=== PATIENT | male | born 1960 | race Two or more races ===

== ENCOUNTER 2018-07-11 16:17 | Inpatient (IN) | payer MEDICARE, OTHER ==
[~2018-07-11] VITALS: Ht 175.3 cm; Wt 70.8 kg
--- NOTE | 2018-07-11 17:00 | NUR ---
ASE MASTER MECHANIC NOTES RECEIVED REPORT FROM [facility] FROM [facility] . PATIENT CAME INTO ER FROM HOME [facility] FOR SEIZURES. 57 YR OLD WELSH SPEAKING MALE WITH HX OF SEIZURES AND CVA 2011 AND EPILEPSY. PATIENT WAS BEING DISCHARGED X2 WHEN EXPERIENCED SEIZURE IN ED. MEDS GIVEN IN ED KEPPRA 1000MG/ATIVAN X2 / DILANTIN 1000MG. NO SEIZURES AFTER LAST DOSE OF ATIVAN @1245. DILANTIN LEVEL 0. VITALS STABLE IN ED 76.4 KGS DEFICIT OF (R) ARM WEAKNESS (L) WRIST SALINE LOCK # 20 GAUGE . ETA 1800.
--- NOTE | 2018-07-11 18:30 | NUR ---
TESTING MANAGER NOTES PATIENT ARRIVED EMS NO SIGNS OR SYMPTOMS OF RESPIRATORY DISTRESS OR ACUTE PAIN. ON ROOM AIR. A/O X2 PATIENT NONVERBAL JAPANESE SPEAKING GARBLED SPEECH/APHASIC. GOWN AND BRIEF CHANGED PLACED ON TELE MONITOR SINUS RHYTHM AT THIS TIME. VITALS T 97.7 BP 129/76 HR 77 RR 17 O2 97% RA. EMS STATED FAMILY (SON ) ON HIS WAY TO HELP WITH HISTORY. WILL ENDORSE TO NOC
[2018-07-11 20:00] VITALS: BP 127/75
[2018-07-11] MEDS ORDERED: ZOLPIDEM TARTRATE 5 MG TABLET PO PRN (20:00)
[2018-07-11] MEDS ORDERED: Z GUARD REMEDY 2 OZ OINT TP PRN (20:00)
[2018-07-11] MEDS ORDERED: MAG HYDROX/AL HYDROX/SIMETH 30 ML UDC PO PRN (20:00)
[2018-07-11] MEDS ORDERED: HYDROCODONE/APAP 5/325MG 1 EACH TABLET PO PRN (20:00)
[2018-07-11] MEDS ORDERED: ONDANSETRON HCL/PF 4 MG/2 ML VIAL IVP PRN (20:00)
[2018-07-11] MEDS ORDERED: MAGNESIUM HYDROXIDE 30 ML UDC PO PRN (20:00)
[2018-07-11] MEDS ORDERED: ACETAMINOPHEN 325 MG TABLET PO PRN (20:00)
[2018-07-11] MEDS ORDERED: LORAZEPAM INJ 2 MG/ML VIAL IV PRN (20:00)
--- NOTE | 2018-07-11 20:00 | NUR ---
TELE/ADMISSION RN NOTES: RECEIVED PT. FROM PREVIOUS SHIFT. A/O X 3. SPEECH IS GARBLED DUE TO CVA IN 2011. ON TELE MONITOR W/ SR. ABLE TO UNDERSTAND UPPER SORBIAN AND NAMIBIAN. FOLLOW SIMPLE COMMANDS . W/ HL ON LW W/ IVF. SON AND BROTHER PRESENT BY BEDSIDE. DENIES ANY C/O CHEST PAIN OR SOB PRESENT. ON SEIZURE PRECAUTION. SIDE RAILS PADDED. ABLE TO USE URINAL. CALL LIGHT W/ REACH. WILL CONTINUE TO MONITOR.
[2018-07-11 20:08] VITALS: BP 129/76
[2018-07-11 20:53] LABS: ALBUMIN 3.1 g/dL (3.4-5.0); BILIRUBIN,TOTAL 0.5 mg/dL (0.2-1.0); CALCIUM, SERUM 8.2 mg/dL (8.5-10.1); CREATININE 0.9 mg/dL (0.6-1.3); MAGNESIUM 1.9 mg/dL (1.8-2.4); PHOSPHORUS 2.8 mg/dL (2.5-4.9); POTASSIUM 3.9 mmol/L (3.5-5.1); TOTAL PROTEIN, SERUM 6.4 g/dL (6.4-8.2)
[2018-07-11] MEDS: IV NS 0.9% 1,000 ML IV PRN (21:15)
[2018-07-11] MEDS: LEVETIRACETAM (500MG) 500 MG in IV NS 0.9% 100 ML IV SCH (21:15)
[2018-07-11 21:26] LABS: BASOPHILS % (AUTO) 0.2 % (0.0-2.0); EOSINOPHILS % (AUTO) 0.4 % (0.0-6.0); HEMATOCRIT 45 % (39-51); HEMOGLOBIN 14.8 g/dL (13.5-17.5); LYMPHOCYTES # (AUTO) 1.9 /CMM (0.8-4.8); LYMPHOCYTES % (AUTO) 20.5 % (20.0-44.0); MEAN CORPUSCULAR HGB CONC 33 g/dl (31.0-36.0); MEAN CORPUSCULAR VOLUME 86 fL (80-96); MONOCYTES # (AUTO) 0.7 /CMM (0.1-1.30); MONOCYTES % (AUTO) 7.3 % (2.0-12.0); NEUTROPHILS # (AUTO) 6.5 /CMM (1.8-8.9); NEUTROPHILS % (AUTO) 71.6 % (43.0-81.0); PLATELET COUNT (AUTO) 196 /CMM (150-450); RED BLOOD CELL COUNT(AUTO) 5.19 MIL/uL (4.5-6.0); WHITE BLOOD COUNT (AUTO) 9.1 K/uL (4.3-11.0)
[2018-07-12] VITALS: BP 110/69
[2018-07-12 04:00] VITALS: BP 100/56
[2018-07-12 06:26] LABS: BASOPHILS % (AUTO) 0.3 % (0.0-2.0); EOSINOPHILS % (AUTO) 1.5 % (0.0-6.0); HEMATOCRIT 42 % (39-51); LYMPHOCYTES % (AUTO) 24.7 % (20.0-44.0); MEAN CORPUSCULAR HGB CONC 33 g/dl (31.0-36.0); MEAN CORPUSCULAR VOLUME 86 fL (80-96); MONOCYTES # (AUTO) 0.7 /CMM (0.1-1.30); MONOCYTES % (AUTO) 8.9 % (2.0-12.0); NEUTROPHILS # (AUTO) 5.4 /CMM (1.8-8.9); NEUTROPHILS % (AUTO) 64.6 % (43.0-81.0); PLATELET COUNT (AUTO) 197 /CMM (150-450); RED BLOOD CELL COUNT(AUTO) 4.93 MIL/uL (4.5-6.0); WHITE BLOOD COUNT (AUTO) 8.3 K/uL (4.3-11.0)
[2018-07-12 06:35] LABS: CALCIUM, SERUM 7.9 mg/dL (8.5-10.1); CREATININE 0.9 mg/dL (0.6-1.3); POTASSIUM 3.9 mmol/L (3.5-5.1)
--- NOTE | 2018-07-12 07:47 | NUR ---
RN AM SHIFT NOTE SWALLOW EVALUATION ORDER PER MD ORDER. PATIENT HAS DIAGONOSIS SEIZURE X2 , SPEECH NOT CLEAR, HX OR STROKE, OK TO ORDER SWALLOW EVAL AT THIS TIME.
[2018-07-12 08:00] VITALS: BP 120/68
--- NOTE | 2018-07-12 08:10 | NUR ---
PSYCHODRAMATIST NOTES RECEIVED PATIENT IN BED AWAKE ALERT WITH SOME CONFUSION AND SLURRED SPEECH. TELE MONITOR SINUS RHYTHM HR 65, LFT WRIST 20 GAUGE INTACT RUNNING NS 75ML/HR ORDERED, BED IN LOW POSITION, SEIZURE PRECAUTIONS IN PLACE, WILL ASK DR TO ORDER ST FOR SWALLOW EVAL. CALL LIGHT WITHIN REACH, PLAN OF CARE DISCUSSED WITH PATIENT , WILL CONTINUE TO MONITOR. CHARGE NURSE SPOKE WITH NEUROLOGIST AND WILL SEE PATIENT.
[2018-07-12] MEDS: LEVETIRACETAM (500MG) 500 MG in IV NS 0.9% 100 ML IV SCH ×2 (08:22→21:06)
--- NOTE | 2018-07-12 09:30 | NUR ---
AUGER MACHINE OFFBEARER NOTE SPEECH THERAPY AT BEDSIDE SWALLOW EVAL DONE, OK TO CONTINUE CARDIAC DIET ORDERED.
[2018-07-12] MEDS ORDERED: DEXTROSE 50%-WATER 50 ML DISP.SYRIN IV PRN (10:30)
[2018-07-12] MEDS: IV NS 0.9% 1,000 ML IV PRN (10:50)
--- NOTE | 2018-07-12 11:09 | NUR ---
COMMERCIAL INTERIOR DESIGNER NOTE PT AT BEDSIDE , ABLE TO AMBULATE AROUND ROOM WITH ASSISTANCE
[2018-07-12 12:00] VITALS: BP 131/68
[2018-07-12] MEDS: BLOOD SUGAR DIAGNOSTIC 1 EACH STRIP VI SCH ×3 (12:34→21:17)
[2018-07-12] MEDS: INSULIN REGULAR, HUMAN 100 UNIT/ML 3 ML VIAL SQ PRN ×2 (12:35→17:04)
--- NOTE | 2018-07-12 12:37 | NUR ---
SENIOR CONTROLS ENGINEER NOTE ACCUCHECK DONE 323, 12 UNITS GIVEN. ATE 100% LUNCH
[2018-07-12] MEDS ORDERED: METF-442 PO (13:14)
[2018-07-12] MEDS ORDERED: TAMS0.4C34 PO (13:14)
[2018-07-12] MEDS ORDERED: LEVE100023 PO (13:14)
[2018-07-12] MEDS ORDERED: ZONI100C6 PO (13:14)
[2018-07-12] MEDS ORDERED: LISI-603 PO (13:14)
[2018-07-12] MEDS ORDERED: SERT50TA12 PO (13:14)
[2018-07-12] MEDS ORDERED: CLOP75TA15 PO (13:14)
[2018-07-12] MEDS ORDERED: RANI150C4 PO (13:14)
[2018-07-12] MEDS ORDERED: METO100T14 PO (13:14)
[2018-07-12] MEDS ORDERED: INSU100I26 SQ (13:14)
[2018-07-12 13:59] LABS: APPEARANCE,URINE CLEAR (CLEAR); BILIRUBIN,URINE NEGATIVE (NEGATIVE); BLOOD, URINE NEGATIVE Ery/uL (NEGATIVE); COLOR,URINE YELLOW (YELLOW); KETONES,URINE NEGATIVE (NEGATIVE); LEUKOCYTE ESTERASE ,URINE NEGATIVE (NEGATIVE); NITRITE, URINE NEGATIVE (NEGATIVE); PH,URINE 7.5 (5.0-8.0); PROTEIN,URINE NEGATIVE (NEGATIVE); UGLUCOSE 3+ mg/dL (NEGATIVE); UROBILINOGEN,URINE 0.2 EU/dL (0.2)
[2018-07-12 14:28] LABS: BACTERIA,URINE Rare /HPF (None Seen); RBC,URINE 0-2 /HPF (0-2); SQUAMOUS EPITHELIAL CELL,UR Rare /HPF (None Seen); WBC,URINE NONE SEEN /HPF (0-3)
--- NOTE | 2018-07-12 15:49 | NUR ---
ROW BOSS HOEING NOTE ROUNDS MADE, RESTING COMFORTABLE, ASSISTED TO URINAL, URINATED WELL, MONITOR PATIENT
[2018-07-12 16:00] VITALS: BP 113/69
[2018-07-12] MEDS: METFORMIN 850 MG TABLET PO SCH (16:31)
--- NOTE | 2018-07-12 18:25 | NUR ---
EQUINE VET NOTE PATIENT RESTING COMFORTABLE, SEIZURE PRECAUTIONS IN PLACE, BED IN LOW POSITION, BED ALARM ON, RIGHT FOREARM IV 20 GAUGE PATENT AND INTACT, ALERT TO NAME SPEECH GARBLED, STROKE AND RIGHT UPPER ARM WEAKNESS, NORMAL SINUS RHYTHM, URINAL AT BEDSIDE 900 CC THIS SHIFT, PT EVAL DONE WALK WITH ASSIST, SPEECH EVAL DONE DIABETIC DIET, RT LOWER LEG SCAB WOUND CONSULT DONE, FALL RISK BED ALARM ON. IV FLUIDS RUNNING 75ML/HR, ACCUCHECK DONE ACHS 1830 WAS 151. URINE RESULT 3+, SPEECH EVAL DONE, MRSA PENDING. WILL CONTINUE TO MONITOR PATIENT FOR SEIZURE AND NON COMPLIANCE WITH MEDS.
[2018-07-12 20:00] VITALS: BP 128/69
[2018-07-12] MEDS: *INSULIN REGULAR(HUMULIN R)HUM 100 UNIT/ML VIAL SQ PRN (21:25)
--- NOTE | 2018-07-12 23:50 | NUR ---
RN GAVE REPORT AND PATIENT TO HENRIQUE PALACIOS
--- NOTE | 2018-07-12 23:55 | NUR ---
RN NOTES RECEIVED PT. FROM HENRIQUE MARROQUIN, Shay/MONSERRAT 2 AFGHAN SPEAKING, SR ON TELE MONITOR HR-63, NO PAIN NOTED, NO SOB, CALL LIGHT WITHIN REACH, [id number], CONTINUE TO MONITOR
[2018-07-13 00:39] VITALS: BP 132/68
[2018-07-13] MEDS: IV NS 0.9% 1,000 ML IV PRN (01:40)
[2018-07-13 04:00] VITALS: BP 140/81
[2018-07-13 06:41] LABS: CALCIUM, SERUM 7.9 mg/dL (8.5-10.1); CREATININE 0.8 mg/dL (0.6-1.3); MAGNESIUM 1.7 mg/dL (1.8-2.4); PHOSPHORUS 2.7 mg/dL (2.5-4.9)
--- NOTE | 2018-07-13 06:41 | NUR ---
RN NOTES SLEEPING BUT AROUSABLE, MORNING CARE RENDERED, NO [PAIN NOTED, NO SOB, SIDERAILSUPX2, PT. NEEDS ATTENDED
[2018-07-13 08:00] VITALS: BP 143/86
--- NOTE | 2018-07-13 08:00 | NUR ---
BLOOD BANK BOOKING CLERK NOTE PATIENT RESTING COMFORTABLY IN BED, SEIZURE PRECAUTIONS IN PLACE, BED IN LOW POSITION, BED ALARM ON, RIGHT FOREARM IV 20 GAUGE PATENT AND INTACT WITH IVF NS AT 75 ML/HR INFUSING WELL, ALERT TO NAME SPEECH GARBLED, STROKE AND RIGHT UPPER ARM WEAKNESS, NORMAL SINUS RHYTHM, USES URINAL AT BEDSIDE AND EMPTIED NEEDED, PT EVAL DONE WALK WITH ASSIST WITH PIEDAD-WALKER WITH SLOW,STEADY GAIT., SPEECH EVAL DONE DIABETIC DIET, RT LOWER LEG SCAB WOUND CONSULT DONE, FALL RISK BED ALARM ON.MRSA PENDING. WILL CONTINUE TO MONITOR PATIENT FOR SEIZURE AND COMPLIANCE WITH MEDS. CALL LIGHT WITHIN REACH.
[2018-07-13] MEDS: LEVETIRACETAM (500MG) 500 MG in IV NS 0.9% 100 ML IV SCH ×2 (09:00→20:00)
[2018-07-13] MEDS: BLOOD SUGAR DIAGNOSTIC 1 EACH STRIP VI SCH ×4 (09:00→21:28)
[2018-07-13] MEDS: METFORMIN 850 MG TABLET PO SCH ×2 (09:00→17:11)
[2018-07-13] MEDS: INSULIN REGULAR, HUMAN 100 UNIT/ML 3 ML VIAL SQ PRN ×3 (09:04→17:14)
--- NOTE | 2018-07-13 10:10 | NUR ---
WOUND CARE CONSULT: PT PRESENTS WITH DRY SCAB TO ANTERIOR RT LOWER LEG, PRESENT ON ADMISSION. PT IS CONTINENT AT THIS TIME. RECOMMENDATIONS MADE FOR SKIN PROTECTION. DISCUSSED WITH NURSING STAFF. WILL SEE PRN. MURPHY IN AGREEMENT WITH PLAN OF CARE. Addendum: 07/13/18 at 1011 by MURIEL TEJADA WNDNU Amended: Links added.
[2018-07-13] MEDS: Magnesium 1GM/D5W 100ML PREMIX 100 ML IV SCH ×3 (10:58→16:03)
[2018-07-13 12:00] VITALS: BP 133/70
--- NOTE | 2018-07-13 15:26 | NUR ---
PT HAS BEEN GOING TO THE TOILET OFTEN DELAYING THE ADMINISTRATION OF IV MAGNESIUM.SECOND BAG OF MAGNESIUM STILL INFUSING.REMOVED PT'S LEFT WRIST HEPLOCK SINCE IT'S INFILTRATED.WITH NO BLEEDING NOTED.PT TOLERATED WELL.APPLIED ICE PACK IN THE AFFECTED AREA.
[2018-07-13 16:00] VITALS: BP 141/80
--- NOTE | 2018-07-13 16:04 | NUR ---
PT KEEPS GOING TO THE TOILET AND STAYS FOR A LONG TIME IN THE TOILET DELAYING THE ADMINISTRATION OF MG IV
[2018-07-13 20:00] VITALS: BP_SYST 153; BP_SYST 163; BP_DIAS 84
[2018-07-13] MEDS: *INSULIN REGULAR(HUMULIN R)HUM 100 UNIT/ML VIAL SQ PRN (21:28)
[2018-07-13] MEDS ORDERED: INSULIN GLARGINE, 100 UNIT/ML CARTRIDGE SQ SCH (22:00)
[2018-07-14] VITALS: BP 134/79
[2018-07-14 04:00] VITALS: BP 137/74
--- NOTE | 2018-07-14 07:05 | NUR ---
RESIDENT DIRECTOR OPENING NOTES RECEIVED PT LYING ON BED.ALERT/ORIENTED X2 WITH CONFUSED.ON TELE HR IS 74 WITH SR.ON ROOM AIR,TOLERATING WELL.NO SOB AND ACUTE DISTRESS NOTED.CAN AMBULATE WITH WALKER WITH MINIMLA SUPERVISION.IV LINE IS ON RIGHT FA G20,SITE IS CLEAN,DRY AND INTACT.SAFETY IS MAINTAINED AT ALL TIMES.BED IS IN LOW POSITION AND LOCKED.CALL LIGHT IS WITHIN REACH.WILL CONTINUE TO MONITOR THE PT CLOSELY.
[2018-07-14 07:23] LABS: CREATININE 0.9 mg/dL (0.6-1.3); MAGNESIUM 1.8 mg/dL (1.8-2.4); PHOSPHORUS 3.2 mg/dL (2.5-4.9); POTASSIUM 4.4 mmol/L (3.5-5.1)
[2018-07-14] MEDS: BLOOD SUGAR DIAGNOSTIC 1 EACH STRIP VI SCH ×3 (07:30→17:14)
[2018-07-14 08:00] VITALS: BP 123/72
[2018-07-14] MEDS: METFORMIN 850 MG TABLET PO SCH (08:08)
[2018-07-14] MEDS ORDERED: LEVETIRACETAM (250 MG) 250 MG TABLET PO SCH ×2 (09:00→21:00)
[2018-07-14] MEDS: INSULIN REGULAR, HUMAN 100 UNIT/ML 3 ML VIAL SQ PRN ×2 (11:31→17:16)
[2018-07-14 12:00] VITALS: BP 121/75
[2018-07-14 16:00] VITALS: BP 122/74
[2018-07-14] MEDS ORDERED: METFORMIN 500 MG TABLET PO SCH (17:00)
[2018-07-14] MEDS ORDERED: INSULIN GLARGINE, 100 UNIT/ML CARTRIDGE SQ SCH (17:00)
[2018-07-14] MEDS ORDERED: CLOPIDOGREL BISULFATE 75 MG TABLET PO SCH (17:00)
--- NOTE | 2018-07-14 19:00 | NUR ---
BRAZE OPERATORINSPECTOR ALUMINUM BOAT NOTES ORDERED TO DISCHARGE TO HOME.ALL THE DISCHARGE MEDICATIONS ARE EXPLAINED TO THE FAMILY AND PT.SKIN ASSESSMENT HAS DONE AND PICTURE HAS TAKEN.VITAL SIGNS ARE CHECKED AND RECORDED.IV LINE FROM RIGHT HAND IS REMOVED AND NO BLEEDING NOTED,DRESSING HAS DONE.BELONGING LIST IS SIGNED BY THE PT.TOLERATING WELL ON ROOM AIR.NO COMPLICATIONS NOTED.
[2018-07-14] MEDS ORDERED: FAMOTIDINE (20 MG) 20 MG TABLET PO SCH (21:00)
[2018-07-14] MEDS ORDERED: METOPROLOL TARTRATE 50 MG TABLET PO SCH (21:00)
[2018-07-15] MEDS ORDERED: TAMSULOSIN 0.4 MG CAP.SR.24H PO SCH (09:00)
[2018-07-15] MEDS ORDERED: LISINOPRIL (20MG) 20 MG TABLET PO SCH (09:00)
[2018-07-15] MEDS ORDERED: ZONISAMIDE 100 MG CAPSULE PO SCH (09:00)
[2018-07-15] MEDS ORDERED: SERTRALINE HCL 50 MG TABLET PO SCH (09:00)
== END 2018-07-14 19:00 | disposition home or self-care (01) | DRG 101 ==
LOC: MEDSG1 16:17 → UNDOADMIN 16:17 → TELE-TD 19:22 → TELE1 07-12 07:40
PROVIDERS: ADMIT Internal Medicine; ATTEND Internal Medicine
DX: G40.909 Epilepsy, unspecified, not intractable, without status epilepticus (principal); I69.359 Hemiplegia and hemiparesis following cerebral infarction affecting unspecified side; E11.65 Type 2 diabetes mellitus with hyperglycemia; S09.90XA Unspecified injury of head, initial encounter; W19.XXXA Unspecified fall, initial encounter; Y92.009 Unspecified place in unspecified non-institutional (private) residence as the place of occurrence of the external cause; Z91.19 Patient's noncompliance with other medical treatment and regimen; Z98.890 Other specified postprocedural states; Z83.438 Family history of other disorder of lipoprotein metabolism and other lipidemia
CPT/HCPCS: 36415; 71045-TC; 80048-TC; 80053-TC; 80061-TC; 81000-TC; 82962-TC; 83735-TC; 84100-TC; 85025-TC; 87081-TC; 92611-TC; 97110-TC; 97116-TC; 97530-TC; A6402; G0378; J1815; J1953; J3475; J7030